=== PATIENT | male | born 1965 | race Caucasian/White ===

== ENCOUNTER 2023-09-28 21:15 | Emergency (ER) | payer OTHER ==
[~2023-09-28] VITALS: Ht 165.1 cm; Wt 76.2 kg
[2023-09-28 23:39] VITALS: BP 141/94; TEMP 98.1; O2SAT 98
[2023-09-28] MEDS ORDERED: SULF1TAB48 PO (23:39)
== END 2023-09-28 23:56 | disposition home or self-care (01) ==
LOC: ER 21:41
DX: L02.413 Cutaneous abscess of right upper limb (principal); L03.113 Cellulitis of right upper limb